=== PATIENT | female | born 1945 | race Caucasian/White ===

== ENCOUNTER → 2022-06-07 14:54 | Outpatient (BNVA) | payer BC, SELFPAY | PROVIDERS: PCP Family Medicine; Visit Provider Nurse Practitioner Family | DX: Z13.89 Encounter for screening for other disorder (principal) ==

== ENCOUNTER 2022-07-03 12:50 | Outpatient (REF) | payer BC, SELFPAY ==
--- NOTE | 2022-07-03 12:57 | EEG_ITS ---
This is a 16 channel EEG with an EKG lead. The patient is reported awake during the tracing. Background EEG rhythm is 10-12 hertz 5 to 70 microvolt posteriorly, and lower amplitude fast anteriorly. Patient transitioned in and out of drowsiness. Photic stimulation does not produce any significant driving. Hyperventilation is not performed. Cardiac lead does not reveal any significant abnormality. No sharp wave spikes or paroxysmal tendency noted. IMPRESSION: No significant abnormality noted on this EEG. MD HEATHER Quiroz/FAIZAN / [id number]
== END 2022-07-03 12:51 | disposition home or self-care (01) ==
LOC: HO.NEURO 12:50
PROVIDERS: Visit Provider Nurse Practitioner Family
DX: F09 Unspecified mental disorder due to known physiological condition (principal); R25.1 Tremor, unspecified
CPT/HCPCS: 95816

== ENCOUNTER 2022-07-09 09:45 | Outpatient (REF) | payer BC, SELFPAY ==
--- NOTE | ~2022-07-09 | MR_ITS ---
EXAMINATION: MR BRAIN WITHOUT CONTRAST CLINICAL INFORMATION: 76-year-old with unspecified mental disorder due to known physiologic condition. COMPARISON: None available. TECHNIQUE: Multiplanar multisequence MR imaging of the brain was done without IV contrast. FINDINGS: Brain Volume: Suspect mildly to moderately disproportionate anteromedial temporal lobe volume loss with prominence of the sylvian fissures, left more than right, and slightly asymmetric prominence of the left choroidohippocampal fissure. If clinically warranted, quantitative brain volumetric analysis can be done to further assess these findings. Structural: No malformations. Brain and Meninges: There are moderately extensive patchy and focally confluent regions of FLAIR/T2 signal hyperintensity within the subcortical and deeper periventricular white matter of both cerebral hemispheres which are slightly T1 hypointense and are nonspecific findings but likely reflect advanced chronic ischemic microangiopathy. There is a small focus of probable chronic ischemic change in the anterior limb of the right internal capsule. DWI sequence demonstrates no restricted diffusion to suggest acute or subacute cerebral ischemia. Gradient refocused imaging demonstrates no abnormal susceptibility-weighted signal loss to suggest hemorrhage, hemosiderin staining or abnormal mineralization. No extra-axial fluid collections, space-occupying process or mass effect are identified. Ganglionic structures and brainstem are intact. Ventricles and Subarachnoid Spaces: There is mild prominence of the third and lateral ventricles without hydrocephalus, likely reflecting central white matter volume loss. Slightly asymmetric dilatation of the left temporal horn relative to the right consistent with the findings in the brain volume section above. Orbital Structures: Bilateral lens extractions are noted. Otherwise, the visualized orbital structures are grossly unremarkable within the limitations of the study. Vascular: Signal voids are noted in the visualized major intracranial vessels. Osseous Structures, Sinuses/Mastoids, Extracranial Soft Tissues: Unremarkable MR/MR head/brain wo con IMPRESSION: 1. 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 2. Suspect mildly to moderately disproportionate anteromedial temporal lobe volume loss with prominence of the Sylvian fissures, left more than right, and slightly asymmetric dilatation of the left choroido hippocampal fissure. If clinically warranted, quantitative brain volumetric analysis can be done to further assess these findings.
== END 2022-07-09 09:46 | disposition home or self-care (01) ==
LOC: HO.MRI 09:45
PROVIDERS: PCP Family Medicine; Visit Provider Nurse Practitioner Family
DX: F09 Unspecified mental disorder due to known physiological condition (principal); R25.1 Tremor, unspecified
CPT/HCPCS: 70551

== ENCOUNTER → 2022-08-22 10:58 | Outpatient (BNVA) | payer BC, SELFPAY | PROVIDERS: PCP Family Medicine; Visit Provider Nurse Practitioner Family ==

== ENCOUNTER → 2022-10-08 12:59 | Outpatient (REF) | payer BC, SELFPAY | LOC: HO.SL 12:59 | PROVIDERS: PCP Family Medicine; Visit Provider Nurse Practitioner Family | DX: R06.83 Snoring (principal); G47.9 Sleep disorder, unspecified; G47.19 Other hypersomnia; F09 Unspecified mental disorder due to known physiological condition | CPT/HCPCS: 95806 ==

== ENCOUNTER → 2022-10-08 13:14 | Outpatient (BNV) | payer BC, SELFPAY | PROVIDERS: PCP Family Medicine; Visit Provider Psychiatry & Neurology Neurology | DX: R06.83 Snoring (principal) | CPT/HCPCS: 95806 ==

== ENCOUNTER 2022-12-10 10:59 | Outpatient (AMB) | payer BC, SELFPAY ==
[2022-12-10 11:02] VITALS: BP 106/70; PULSE 57; O2SAT 99; BMI 17.7
--- NOTE | 2022-12-10 11:02 | A.OFFVIS_ITS ---
Intake Vital Signs 12/10/22 11:02 Height 5 ft 4 in Weight 103 lb 2 oz BMI 17.7 BP 106/70 Blood Pressure Location Lt brachial Position Sitting Pulse 57 Pulse Source Pulse Oximeter Pulse Oximetry (%) 99 Oxygen Delivery Method Room Air Intake Visit Reasons: 3m follow up - Confirmed Intake Note: Pt states things are about the same. Pt states nothing's really changed. Team Physician Required: No Allergies Penicillins Allergy (Unknown, Verified 12/10/22 11:08) Hives erythromycin base [From Erythrocin] Adverse Reaction (Unknown, Verified 12/10/22 11:08) Abdominal Pain Medication List - Last Reconciled 12/10/22 by ROMIE Melissa estradiol (Yuvafem) 0 mcg vaginal lorazepam 0.5 mg PO BID PRN omeprazole 20 mg PO DAILY pravastatin 20 mg PO DAILY HPI HPI Comments History of Present Illness Details 77-yr-old female presents for f/u visit. Pt denies any significant interval medical changes. Pt reports she continues to have some memory lapses, say can not recall the name of someone, or word swapping, Stating dinner will be spinach instead of spaghetti. No unsafe behaviors. She continues to take Lorazepam daily for throat pain. Her HST was normal w/ AHI 0.2/hr and O2 lilo 90%. 09/16/22 PT Brain Imaging (PET) Metabolic Evaluation CPT 73875 Room Description: [facility] Pt4 Positron emission tomography and CT dated September 16, 2022. No prior PET/CT is available. Comparison is made with a report dated July 09, 2022. PET technique: Today's study was performed with the intravenous infusion of 8 mCi of F-[id number]. Positron emission tomography and CT was performed from the base of the brain vertex. Axial, coronal, sagittal, and 3-D reconstruction was performed on an independent workstation. The blood glucose at the time of the injection was 90 mg/dL. FINDINGS: This examination shows asymmetric decreased metabolic activity in the temporal lobes left greater than right. In addition, there is decreased metabolic activity noted in the parietal lobes right greater than left. There is also some minimal decrease in the medial aspect of the frontal lobes bilaterally. The basal ganglia are normal. IMPRESSION: This pattern is not completely consistent with Alzheimer's although it does come closest to that pattern. The medial frontal decrease could mean that there is some involvement with additional etiologies such as multi-infarct dementia or even frontal temporal dementia. PFSH Medical History Odynophagia Mild depression Osteoporosis GERD (gastroesophageal reflux disease) HLD (hyperlipidemia) Surgical History H/O abdominal surgery H/O: hysterectomy Family History Mother Alzheimer disease Father Cerebrovascular accident (CVA) Hypertension Hyperlipidemia Social History Alcohol intake: current Alcohol intake frequency: holidays/special occasions only Patient Tobacco Use Status: Never used Tobacco Substance Use Type: Marijuana Review of Systems Const All systems reviewed & are unremarkable except as noted in HPI and below Physical Exam Vital Signs: Last Vital Signs Pulse 57 12/10/22 11:02 BP 106/70 12/10/22 11:02 Pulse Ox 99 12/10/22 11:02 Oxygen Delivery Method Room Air 12/10/22 11:02 BMI result Body Mass Index 17.7 Const General: cooperative and no acute distress Orientation/consciousness: patient oriented x3 HEENT Head: Yes normocephalic Resp Effort & Inspection: normal respiratory effort and able to speak in complete sentences Neuro General: patient oriented x3, gait normal and CN's II-XI intact bilaterally Cognition (Neuro): normal cognition Motor exam (neuro): 5/5 motor strength present throughout Psych Appearance: grossly normal Mental Status: mental status grossly normal Speech and movement: Normal speech and movement present Affect: normal affect Attitude: cooperative Thought process: Normal thought process present Thought content: Normal thought content present Insight: Good insight present (Psych) Judgement: Good judgement present (Psych) Assessment & Plan Assessment & Plan (1) Cognitive dysfunction: Code(s): F09 - Unspecified mental disorder due to known physiological condition (2) Sleep difficulties: Code(s): G47.9 - Sleep disorder, unspecified Plan Reviewed HST- normal. Reviewed brain PET scan- Abnormal study with asymmetric decreased metabolic activity in L > R temporal lobes, decreased metabolic activity noted in R > L parietal lobes, minimal decrease in the medial aspect of the frontal lobes bilaterally. Study close to but not completely c/w an Alzheimer's pattern, the medial frontal decrease raises suspicion for a multi-infarct dementia or frontal temporal dementia. 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 Suspect mildly to moderately disproportionate anteromedial temporal lobe volume loss with prominence of the Sylvian fissures, left more than right, and slightly asymmetric dilatation of the left choroido hippocampal fissure. MMSE on 06/07/22: 22 Clock on 06/07/22: Mild difficulty. Her mother developed AD in her 60s. Neuro-psych eval as ordered. Start Namenda XR 7mg qd. Continue regular physical, social, and cognitive activities. Monitor tremor. Future considerations- LP for CSF or Amyloid PET- to assess for AB pathology F/u in 3-4 months or sooner prn. Medications: New memantine 7 mg PO DAILY 30 days 30 ea 3RF Coding Level of Care Code Est Pt Level 4 (77311) Diagnoses Cognitive dysfunction F09 Sleep difficulties G47.9
== END 2022-12-10 11:47 | disposition home or self-care (01) ==
PROVIDERS: Visit Provider Nurse Practitioner Family
DX: R41.89 Other symptoms and signs involving cognitive functions and awareness (principal); G47.9 Sleep disorder, unspecified
CPT/HCPCS: 99214

== ENCOUNTER → 2022-12-10 10:59 | Outpatient (BNVA) | payer BC, SELFPAY | PROVIDERS: Visit Provider Nurse Practitioner Family ==

== ENCOUNTER 2023-06-09 09:05 | Outpatient (AMB) | payer BC, SELFPAY ==
[2023-06-09 09:15] VITALS: BP 102/72; PULSE 60; O2SAT 98; BMI 18.8
--- NOTE | 2023-06-09 09:15 | A.OFFVIS_ITS ---
Intake Vital Signs 06/09/23 09:15 Height 5 ft 4 in Weight 109 lb 4 oz BMI 18.8 BP 102/72 Blood Pressure Location Rt brachial Position Sitting Pulse 60 Pulse Source Pulse Oximeter Pulse Oximetry (%) 98 Oxygen Delivery Method Room Air Intake Visit Reasons: 3m follow up-LVM Intake Note: Patient presents for 3 month follow up. Allergies Penicillins Allergy (Unknown, Verified 06/09/23 09:17) Hives erythromycin base [From Erythrocin] Adverse Reaction (Unknown, Verified 06/09/23 09:17) Abdominal Pain Medication List - Last Reconciled 06/09/23 by ROMIE Melissa estradiol (Yuvafem) 0 mcg vaginal lorazepam 0.5 mg PO BID PRN memantine 7 mg PO DAILY 30 days omeprazole 20 mg PO DAILY pravastatin 20 mg PO DAILY HPI HPI Comments History of Present Illness Details 77-yr-old female presents for f/u visit, accompanied by her . Pt denies any significant interval medical changes. She started Namenda, however she she stopped this in Feb as she felt that the Namenda caused abd weight gain though she did not think she was eating more. She deneis abd bloating at that time. She feels she has continued to gain weight since stopping Namneda. She generally does not eat much. She odes not want to take naything that will cause weight gain. She has a long hx of GI s/s- states she has a long colon- prone to constipation and needs to naheed Miralax prn- but it can be too effective. Has tried many different bowel regimens- and has been difficult to manage this. She continues to take the Lorazepam 0.5mg- 2 tabs qd for chronic throat pain. Managed by her PCP. Uses medical marijuana qhs for sleep. [facility] Medical History Odynophagia Mild depression Osteoporosis GERD (gastroesophageal reflux disease) HLD (hyperlipidemia) Surgical History H/O abdominal surgery H/O: hysterectomy Family History Mother Alzheimer disease Father Cerebrovascular accident (CVA) Hypertension Hyperlipidemia Social History (Reviewed 06/09/23 @ 09:18 by RICK Craig Alcohol intake: current Alcohol intake frequency: holidays/special occasions only Patient Tobacco Use Status: Never used Tobacco Substance Use Type: Marijuana Review of Systems Const All systems reviewed & are unremarkable except as noted in HPI and below Physical Exam Vital Signs: Last Vital Signs Pulse 60 06/09/23 09:15 BP 102/72 06/09/23 09:15 Pulse Ox 98 06/09/23 09:15 Oxygen Delivery Method Room Air 06/09/23 09:15 BMI result Body Mass Index 18.8 Const General: cooperative and no acute distress Orientation/consciousness: patient oriented x3 HEENT Head: Yes normocephalic Resp Effort & Inspection: normal respiratory effort and able to speak in complete sentences Neuro General: patient oriented x3, gait normal and CN's II-XI intact bilaterally Cognition (Neuro): normal cognition Motor exam (neuro): 5/5 motor strength present throughout Psych Appearance: grossly normal Speech and movement: Normal speech and movement present Affect: normal affect Attitude: cooperative Assessment & Plan Assessment & Plan (1) Cognitive dysfunction: Comment: abnormal PET scan Code(s): F09 - Unspecified mental disorder due to known physiological condition (2) Tremor: Code(s): R25.1 - Tremor, unspecified (3) Constipation: Code(s): K59.00 - Constipation, unspecified Plan HST- normal. Brain PET scan- Abnormal study with asymmetric decreased metabolic activity in L > R temporal lobes, decreased metabolic activity noted in R > L parietal lobes, minimal decrease in the medial aspect of the frontal lobes bilaterally. Study close to but not completely c/w an Alzheimer's pattern, the medial frontal d ecrease raises suspicion for a multi-infarct dementia or frontal temporal dementia. 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 Suspect mildly to moderately disproportionate anteromedial temporal lobe volume loss with prominence of the Sylvian fissures, left more than right, and slightly asymmetric dilatation of the left choroido hippocampal fissure. MMSE on 06/07/22: 22 Clock on 06/07/22: Mild difficulty. Her mother developed AD in her 60s. Will f/u on Neuro-psych eval order to better understand pt's cognitive strengths/weaknesses and patterns, if any, of cognitive difficulties. Hold Namenda XR 7mg qd- pt sttaed caused bothersome weight gain, though wt gain has persisted so not sure if this is r/t the Namneda. Trial Donepazil 5mg qhs- monitor for anorexia, nausea, syncope. Continue Miralax prn. Continue regular physical, social, and cognitive activities. Monitor tremor. F/u in 3-4 months or sooner prn. Medications: New donepezil 5 mg PO BEDTIME 30 tabs 3RF 30 days Discontinued memantine Discontinued Reason: Doctor's Order 7 mg PO DAILY 30 days 30 ea 3RF Coding Level of Care Code Est Pt Level 4 (81792) Diagnoses Cognitive dysfunction F09 Tremor R25.1 Constipation K59.00
== END 2023-06-09 10:10 | disposition home or self-care (01) ==
PROVIDERS: PCP Family Medicine; Visit Provider Nurse Practitioner Family
DX: R41.89 Other symptoms and signs involving cognitive functions and awareness (principal); R25.1 Tremor, unspecified; K59.00 Constipation, unspecified
CPT/HCPCS: 99214

== ENCOUNTER → 2023-06-09 09:05 | Outpatient (BNVA) | payer BC, SELFPAY | PROVIDERS: PCP Family Medicine; Visit Provider Nurse Practitioner Family ==

== ENCOUNTER 2023-12-12 11:29 | Outpatient (AMB) | payer BC, SELFPAY ==
--- NOTE | 2023-12-12 11:36 | A.OFFVIS_ITS ---
Vital Signs 12/12/23 11:37 Height 5 ft 4 in Weight 107 lb BMI 18.4 Intake Visit Reasons: Follow up- Intake Note: Patient presents for follow up. Allergies Penicillins Allergy (Unknown, Verified 12/12/23 11:38) Hives erythromycin base [From Erythrocin] Adverse Reaction (Unknown, Verified 12/12/23 11:38) Abdominal Pain HPI Comments Details: 78-yr-old female presents for f/u visit. Pt is accompanied by her who assist w/ history. Pt did have a recent colonoscopy- almost 3 weeks ago, states has only has a very small BM since. Denies abd pain, nausea, anorexia. States she is eating ok. She is taking miralax regulalry. Advised to f/u w/ GI?PCP w/ any abd pain, distention, fever, N?V. Pt reports her memory is a bit worse. STM lapses. Forgetting names. Denies unsafe behaviors- not leaving the stove or water on. Pt is walking most days. Does puzzles for ~ 3 hrs a day. She did have neuro-psych eval- showed major neurocognitive disorder She did not start Donepazil- does not want to take any medication. She did have [facility] f/u for odynophagiaa- continues on Lorazepoam- was offered clonazepam but pt was wary of trying something new. [facility] Medical History (Updated 12/12/23 @ 13:02 by ROMIE Melissa) Odynophagia Mild depression Osteoporosis GERD (gastroesophageal reflux disease) HLD (hyperlipidemia) Surgical History Hx of colonoscopy H/O abdominal surgery H/O: hysterectomy Family History Mother Alzheimer disease Father Cerebrovascular accident (CVA) Hypertension Hyperlipidemia Social History Alcohol intake: current Alcohol intake frequency: holidays/special occasions only Patient Tobacco Use Status: Never used Tobacco Substance Use Type: Marijuana Review of Systems Const All systems reviewed & are unremarkable except as noted in HPI and below Physical Exam Vital Signs: BMI result Body Mass Index 18.4 Const General: cooperative and no acute distress HEENT Head: Yes normocephalic Resp Effort & Inspection: normal respiratory effort and able to speak in complete sentences Neuro Other: Alert & oriented to person, place, and partially to time. Responds appropriately w/ STM lapses. Clock- more difficulty drawing clock- able to number face of clock and numbers but had increased difficulty following instruction for drawing hands/time- evenyually hands positioned for 2:00 rather than 1:50 as requested. General: gait normal and CN's II-XI intact bilaterally Cognition (Neuro): normal cognition Motor exam (neuro): 5/5 motor strength present throughout Psych Appearance: grossly normal Speech and movement: Normal speech and movement present Affect: normal affect Attitude: cooperative Thought process: Normal thought process present Thought content: Normal thought content present Insight: Good insight present (Psych) Judgement: Good judgement present (Psych) Orientation What is the (year) (season) (date) (day) (month)?: year, season and month Where are we (state) (county) (town or city) (hospital) (floor)?: state, town or city, hospital/clinic and floor Registration Name of 3 unrelated objects clearly and slowly, then ask patient to repeat all 3 of them. (1st repeat determines score. Make sure they can repeat all three): object 1, object 2 and object 3 Attention & Calculation (CHOOSE ONE) Spell WORLD backwards (DLROW): 5 letters Language Show patient a wristwatch & ask what it is. Repeat for pencil.: pencil Ask the patient to repeat the phrase 'No ifs, ands, or buts' after you.: correct Ask the patient to 'take a piece of paper with their right hand' 'fold paper in half' 'place paper on floor': take paper in right hand, fold paper in half and place paper on floor Give patient a blank piece of paper & ask to write a sentence. Score if it con tains a noun & verb.: sentence contains subject and verb Score Score: 21 Assessment & Plan Assessment & Plan (1) Dementia: Comment: Likely AD. Abnormal PET scan. Neuro-psych eval c/w a major neurocognitive disorder Code(s): F03.90 - Unspecified dementia, unspecified severity, without behavioral disturbance, psychotic disturbance, mood disturbance, and anxiety Category: Medical (2) Constipation: Code(s): K59.00 - Constipation, unspecified Category: Medical Plan Previous work-up: HST- normal. Brain PET scan- Abnormal study with asymmetric decreased metabolic activity in L > R temporal lobes, decreased metabolic activity noted in R > L parietal lobes, minimal decrease in the medial aspect of the frontal lobes bilaterally. Study close to but not completely c/w an Alzheimer's pattern, the medial frontal decrease raises suspicion for a multi-infarct dementia or frontal temporal dementia. 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 Suspect mildly to moderately disproportionate anteromedial temporal lobe volume loss with prominence of the Sylvian fissures, left more than right, and slightly asymmetric dilatation of the left choroido hippocampal fissure. MMSE on 06/07/22: 22 Clock on 06/07/22: Mild difficulty. 06/2023, Neuro-psych evaluation results were c/w a major neurocognitive disorder, such as AD or an atypical AD process. Pt's mother developed AD in her 60s. Will f/u on Neuro-psych eval order to better understand pt's cognitive strengths/weaknesses and patterns, if any, of cognitive difficulties. Pt did not take Donepazil. Pt does not want to take any medication. Previous trials: Namenda XR 7mg qd- pt stated caused bothersome weight gain, though wt gain has persisted so not sure if this is r/t the Namneda. Pt did less well on Clock today than last year. MMSE score is similar however pt struggled to complete the exam a bit more than previous exam. Continue regular physical, social, and cognitive activities. Would advise to continue to monitor tremor, cognition, mood. Advised to monitor GI s/s, constipation, reviewed red flag s/s to seek urgent medical attention for. ? Pt and ask to f/u here prn. Coding Level of Care Code Est Pt Level 4 (34558) Diagnoses Dementia F03.90 Constipation K59.00
[2023-12-12 11:37] VITALS: BMI 18.4
== END 2023-12-12 12:20 | disposition home or self-care (01) ==
PROVIDERS: PCP Family Medicine; Visit Provider Nurse Practitioner Family
DX: F03.90 Unspecified dementia, unspecified severity, without behavioral disturbance, psychotic disturbance, mood disturbance, and anxiety (principal); K59.00 Constipation, unspecified
CPT/HCPCS: 99214

== ENCOUNTER → 2023-12-12 11:29 | Outpatient (BNVA) | payer BC, SELFPAY | PROVIDERS: PCP Family Medicine; Visit Provider Nurse Practitioner Family ==